=== PATIENT | male | born 1955 | race Caucasian/White ===

== ENCOUNTER 2016-10-10 22:23 | Inpatient (IN) | payer SELFPAY ==
[2016-10-10] MEDS ORDERED: NO HOME MEDICATION XX (22:48)
[2016-10-10 23:10] LABS: BASO % 0.6 % (0-2); BASO ABSOLUTE COUNT 0.1 tho/cmm (0.0-0.2); EOS % 3.6 % (0-7); EOSINOPHIL ABSOLUTE COUNT 0.3 tho/cmm (0.0-0.7); HCT-HEMATOCRIT 45.2 % (36.0-53.5); HGB-HEMOGLOBIN 15.8 gm/dl (13.5-17.0); IMMATURE GRANULOCYTES ABSOLUTE 0.03 tho/cmm (0-0.03); IMMATURE GRANULOCYTES PERCENT 0.3 % (0-0.3); LYMPH % 51.5 % (20-45); LYMPH ABSOLUTE COUNT 4.6 tho/cmm (0.8-4.5); MCV (MEAN CELL VOLUME) 85.9 fl (82.0-96.0); MEAN PLATELET VOLUME 11.6 cmc (9.4-12.4); MONO % 7.4 % (0-12); MONOCYTE ABSOLUTE COUNT 0.7 tho/cmm (0.0-1.2); NEUTROPHIL ABSOLUTE COUNT 3.3 tho/cmm (1.6-8.0); NEUTROPHIL-AUTOMATED 3.3 tho/cmm (1.6-8.0); NEUTROPHILS % 36.6 % (40-80); PLATELET COUNT 226 tho/cmm (150-450); RED BLOOD COUNT 5.26 mil/cmm (4.40-5.70)
[2016-10-10 23:28] LABS: ALBUMIN 3.8 g/dl (3.5-5.0); ALKALINE PHOSPHATASE 81 U/L (33-138); ALT/SGPT 49 U/L (12-78); BILIRUBIN,TOTAL 0.4 mg/dl (0.0-1.5); BLOOD UREA NITROGEN 18 mg/dl (6-24); CALCIUM 8.8 mg/dl (8.5-10.5); CARBON DIOXIDE-VENOUS 23 mmol/L (22-32); CHLORIDE 107 mmol/l (96-110); CREATININE 1.18 mg/dl (0.60-1.30); GLUCOSE 149 mg/dL (70-110); LIPASE 194 U/L (73-393); SODIUM 143 mmol/L (135-145); eGFR VALUE FOR BLACK 78 mL/Min
[2016-10-10 23:29] LABS: ANION GAP 17 mmol/L (0-20); AST/SGOT 37 U/L (10-40)
[2016-10-10 23:30] LABS: POTASSIUM 3.5 mmol/L (3.7-5.1)
[2016-10-11] MEDS ORDERED: DRAMAMINE LESS25 M1 PO (00:09)
[2016-10-11 05:42] LABS: ANION GAP 14 mmol/L (0-20); BLOOD UREA NITROGEN 15 mg/dl (6-24); CALCIUM 8.7 mg/dl (8.5-10.5); CARBON DIOXIDE-VENOUS 26 mmol/L (22-32); CHLORIDE 108 mmol/l (96-110); CREATININE 1.08 mg/dl (0.60-1.30); GLUCOSE 121 mg/dL (70-110); MAGNESIUM 2.3 mg/dl (1.8-2.6); SODIUM 144 mmol/L (135-145); eGFR VALUE FOR BLACK 87 mL/Min
[2016-10-11 05:47] LABS: TSH-THYROID STIMULATING HORM. 0.46 uIU/ml (0.40-3.80)
[2016-10-11 05:56] LABS: POTASSIUM 4.4 mmol/L (3.7-5.1)
[2016-10-12 18:07] LABS: ALBUMIN 3.7 g/dl (3.5-5.0); ALKALINE PHOSPHATASE 76 U/L (33-138); ALT/SGPT 36 U/L (12-78); ANION GAP 15 mmol/L (0-20); AST/SGOT 13 U/L (10-40); BILIRUBIN,TOTAL 0.4 mg/dl (0.0-1.5); BLOOD UREA NITROGEN 14 mg/dl (6-24); CALCIUM 8.6 mg/dl (8.5-10.5); CARBON DIOXIDE-VENOUS 27 mmol/L (22-32); CHLORIDE 104 mmol/l (96-110); CREATININE 1.16 mg/dl (0.60-1.30); GLUCOSE 117 mg/dL (70-110); POTASSIUM 3.9 mmol/L (3.7-5.1); SODIUM 142 mmol/L (135-145); eGFR VALUE FOR BLACK 79 mL/Min
[2016-10-13 05:26] LABS: HGB-HEMOGLOBIN 16.2 gm/dl (13.5-17.0); PLATELET COUNT 210 tho/cmm (150-450)
[2016-10-14 06:56] LABS: BASO % 0.4 % (0-2); EOS % 2.8 % (0-7); EOSINOPHIL ABSOLUTE COUNT 0.2 tho/cmm (0.0-0.7); HCT-HEMATOCRIT 46.1 % (36.0-53.5); HGB-HEMOGLOBIN 15.6 gm/dl (13.5-17.0); IMMATURE GRANULOCYTES ABSOLUTE 0.01 tho/cmm (0-0.03); IMMATURE GRANULOCYTES PERCENT 0.1 % (0-0.3); LYMPH % 41.5 % (20-45); MCH (MEAN CORPUSCULAR HGB) 29.4 pg (28.0-32.0); MCHC MEAN CORPUSCULAR HGB CONC 33.8 % (32.0-36.0); MEAN PLATELET VOLUME 10.6 cmc (9.4-12.4); MONO % 9.1 % (0-12); MONOCYTE ABSOLUTE COUNT 0.7 tho/cmm (0.0-1.2); NEUTROPHIL ABSOLUTE COUNT 3.3 tho/cmm (1.6-8.0); NEUTROPHIL-AUTOMATED 3.3 tho/cmm (1.6-8.0); NEUTROPHILS % 46.1 % (40-80); PLATELET COUNT 192 tho/cmm (150-450); RED CELL DISTRIBUTION WIDTH 13.8 % (12.4-16.4); WHITE BLOOD COUNT 7.2 tho/cmm (4.0-10.0)
[2016-10-14 07:05] LABS: ANION GAP 13 mmol/L (0-20); BLOOD UREA NITROGEN 16 mg/dl (6-24); CALCIUM 8.6 mg/dl (8.5-10.5); CARBON DIOXIDE-VENOUS 27 mmol/L (22-32); CHLORIDE 107 mmol/l (96-110); CREATININE 1.14 mg/dl (0.60-1.30); GLUCOSE 90 mg/dL (70-110); POTASSIUM 3.9 mmol/L (3.7-5.1); SODIUM 143 mmol/L (135-145); eGFR VALUE FOR BLACK 81 mL/Min
[2016-10-15 05:47] LABS: PLATELET COUNT 196 tho/cmm (150-450)
[2016-10-16] MEDS ORDERED: PLAVIX75 M1 PO (12:23)
[2016-10-16] MEDS ORDERED: LIPITOR20 M1 PO (12:24)
[2016-10-16] MEDS ORDERED: NORVASC5 M2 PO (12:25)
[2016-10-16] MEDS ORDERED: COZAAR100 M1 PO (12:26)
[2016-10-16] MEDS ORDERED: ASPIRIN81 M1 PO (12:28)
[2016-10-16] MEDS ORDERED: TYLENOL325 M2 PO (12:28)
== END 2016-10-16 13:28 | DRG 65 ==
LOC: EDMED 22:23 → EMR2 10-11 02:25 → 5WE 10-11 02:35 → 5EB 10-12 15:20
PROVIDERS: Emergency Medicine; Hospitalist; Internal Medicine; Internal Medicine Cardiovascular Disease; Nurse Practitioner Family; Registered Nurse; ADMIT Internal Medicine
PROC: B24BZZ4 Ultrasonography of Heart with Aorta, Transesophageal (ICD-10-PCS; principal; 2016-10-14)
DX: I63.9 Cerebral infarction, unspecified (principal); Q21.1 Atrial septal defect; T68.XXXA Hypothermia, initial encounter; I71.2 Thoracic aortic aneurysm, without rupture; I45.81 Long QT syndrome; R00.1 Bradycardia, unspecified; I10 Essential (primary) hypertension; E78.5 Hyperlipidemia, unspecified; E04.1 Nontoxic single thyroid nodule; I35.1 Nonrheumatic aortic (valve) insufficiency; R42 Dizziness and giddiness; Z79.82 Long term (current) use of aspirin; Z79.02 Long term (current) use of antithrombotics/antiplatelets; R73.9 Hyperglycemia, unspecified; E87.6 Hypokalemia; R11.2 Nausea with vomiting, unspecified; R55 Syncope and collapse; H53.2 Diplopia; E66.9 Obesity, unspecified; R53.1 Weakness
CPT/HCPCS: A9577; C8925; C8929; G8978-GP-CJ; G8979-GP-CI; G8987-GO-CJ; G8988-GO-CI; G8989-GO-CJ; J0360; J1650; J2250; J2270; J2405; J3010; J3360; J7030; Q9967